=== PATIENT | male | born 1980 | race Caucasian/White ===

== ENCOUNTER 2019-02-19 13:48 | Emergency (ER) | payer OTHER ==
[~2019-02-19] VITALS: Ht 180.3 cm; Wt 68.0 kg
[2019-02-19 14:04] LABS: URINE BLOOD NEGATIVE (Negative); URINE CLARITY CLEAR; URINE COLOR YELLOW; URINE GLUCOSE-RANDOM NEGATIVE (Negative); URINE KETONES TRACE (Negative); URINE LEUKOCYTES-REFLEX NEGATIVE (Negative); URINE NITRITE-REFLEX NEGATIVE (Negative); URINE PROTEIN 1+ (Negative); URINE SPECIFIC GRAVITY >= 1.030 (1.005-1.030); URINE UROBILINOGEN 0.2 E.U./dl (0.2-1.0)
[2019-02-19 14:10] LABS: ICTOTEST (BILI CONFIRMATORY) Negative (Negative); URINE BILIRUBIN 1+ (Negative)
[2019-02-19 14:11] LABS: AMP/METHAMP POSITIVE (Negative); BARBITURATES Negative (Negative); BENZODIAZEPINES Negative (Negative); COCAINE Negative (Negative); METHADONE Negative (Negative); OPIATES Negative (Negative); PCP Negative (Negative); THC Negative (Negative)
[2019-02-19 14:30] LABS: ABSOLUTE LYMPHOCYTES 1.2 thou/uL (0.8-5.3); ABSOLUTE MONOCYTES 0.5 thou/uL (0.0-1.2); ABSOLUTE NEUTROPHILS 3.8 thou/uL (1.6-8.1); BASOPHILS 0.6 %; EOSINOPHILS 0.3 %; HEMATOCRIT 41.7 % (42.0-52.0); HEMOGLOBIN 14.2 gm/dL (14.0-18.0); LYMPHOCYTES 21.2 %; MCH 28.3 pg (26.0-34.0); MCHC 34.2 g/dL (28.0-37.0); MCV 82.9 fL (80.0-100.0); MONOCYTES 9.3 %; MPV 8.3 fl. (7.2-11.1); NUCLEATED RBCS 0 /100WBC; PLATELET COUNT* 183 thou/uL (150-400); POLYS 68.6 %; RBC 5.02 mil/uL (4.50-6.00); RDW-CV 13.7 % (10.5-14.5); WBC 5.6 thou/uL (4.0-11.0)
[2019-02-19 14:35] LABS: CALCIUM 9.3 mg/dL (8.5-10.1); CREATININE 1.1 mg/dL (0.6-1.3); POTASSIUM 3.6 mmol/L (3.5-5.1)
[2019-02-19 14:45] LABS: ALBUMIN 3.6 g/dL (3.4-5.0); TOTAL BILIRUBIN 0.5 mg/dL (<0.1-1.0); TOTAL PROTEIN 7.1 g/dL (6.4-8.2)
[2019-02-19 14:48] LABS: SALICYLATE < 2.8 mg/dL (2.8-20.0)
[2019-02-19 14:49] LABS: ACETAMINOPHEN < 2 ug/mL (10-30); ALCOHOL < 10 mg/dL (<10)
[2019-02-19 21:53] VITALS: BP 121/79
== END 2019-02-19 21:54 | disposition home or self-care (01) ==
LOC: M.ERS 13:48
PROVIDERS: Family Medicine
DX: F15.10 Other stimulant abuse, uncomplicated (principal)